=== PATIENT | female | born 1945 | race Caucasian/White ===

== ENCOUNTER 2018-07-25 06:37 | Day surgery (SDC) | payer MEDICARE ==
[2018-07-23 18:33] VITALS: BMI 28.5
[~2018-07-25 06:37] MED LIST: SODIUM CHLORIDE 0.9% 1,000 ML in EMPTY BAG 1 BAG IV ONE
[2018-07-25] MEDS ORDERED: ASPIRIN 325 MG TAB ONE (06:55)
[2018-07-25 07:10] VITALS: TEMP 98.2
[2018-07-25] MEDS ORDERED: VERAPAMIL 2.5 MG/ML 2 ML AMP ONE (07:10)
[2018-07-25] MEDS ORDERED: fentaNYL (PF) 50 MCG/ML 2 ML AMP ONE (07:10)
[2018-07-25] MEDS ORDERED: HEPARIN SODIUM 1,000 UN/ML (10ML VL) ONE (07:10)
[2018-07-25] MEDS ORDERED: LIDOCAINE 1% INJ 10MG/ML (20 ML MDV) ONE (07:10)
[2018-07-25 07:17] LABS: Basophils % (A) 0 %; Eosinophils # (A) 0.1 k/uL (0-0.7); Eosinophils % (A) 1 %; HGB 12.2 gm/dL (11.4-16.0); Lymphocytes # (A) 1.6 k/uL (1.0-4.8); Lymphocytes % (A) 15 %; MCH 29.3 pg (25.0-35.0); MCV 88.6 fL (80.0-100.0); Mean Platelet Volume 6.6; Monocytes # (A) 0.3 k/uL (0-1.0); Monocytes % (A) 3 %; Neutrophils # (A) 8.4 k/uL (1.3-7.7); Neutrophils % (A) 81 %; Platelet Count 329 k/uL (150-450); RBC 4.18 m/uL (3.80-5.40); RDW 14.1 % (11.5-15.5); WBC 10.4 k/uL (3.8-10.6)
[2018-07-25 07:24] LABS: Calcium 9.8 mg/dL (8.4-10.2)
[2018-07-25] MEDS ORDERED: fentaNYL (PF) 50 MCG/ML 2 ML AMP IV ONE (07:27)
[2018-07-25] MEDS ORDERED: LIDOCAINE 1% INJ 10MG/ML (20 ML MDV) SQ ONE (07:32)
[2018-07-25] MEDS ORDERED: MIDAZOLAM 2 MG/2 ML VIAL ONE (07:33)
[2018-07-25] MEDS: MIDAZOLAM 2 MG/2 ML VIAL IVP ONE ×2 (07:34→07:43)
[2018-07-25] MEDS: VERAPAMIL SYRINGE (5 MG/10 ML) INTRAARTER ONE ×2 (07:39→07:47)
[2018-07-25] MEDS ORDERED: NITROGLYCERIN 1000MCG/10ML SYRINGE INTRAARTER ONE (07:45)
[2018-07-25] MEDS ORDERED: HEPARIN SODIUM 1,000 UN/ML (10ML VL) IV ONE (07:47)
[2018-07-25] MEDS ORDERED: IOPAMIDOL-370 125ML BTL INJ ONE (07:59)
[2018-07-25] MEDS ORDERED: LORazepam 0.5 MG TAB PO PRN (08:11)
[2018-07-25] MEDS ORDERED: RX INFO: IV CONTRAST WAS GIVEN 1 EACH MISC MISCELLANE PRN (08:11)
[2018-07-25] MEDS ORDERED: NITROGLYCERIN SL TABS 0.4 MG TAB SUBLINGUAL PRN (08:11)
[2018-07-25] MEDS ORDERED: diphenhydrAMINE 50 MG/ML 1 ML VIAL ONE (08:14)
[2018-07-25] MEDS ORDERED: methylPREDNISolone SOD SUCCI 125 MG/2 ML VIAL ONE (08:14)
[2018-07-25] MEDS ORDERED: SODIUM CHLORIDE 0.9% 1,000 ML IV SCH (08:15)
[2018-07-25] MEDS ORDERED: LEVOTHYROXINE 50 MCG TAB PO SCH (08:15)
--- NOTE | 2018-07-25 08:55 | CC ---
CARDIAC CATHETERIZATION REPORT Mrs. Blanco is a 72-year-old female with known history of hyperlipidemia, family history of premature coronary artery disease who has been complaining of exertional chest discomfort. She had a myocardial perfusion imaging which she had poor exercise tolerance and chest discomfort with ST-segment changes with a fixed anterior wall defect. In view of her persistent symptoms and her results of the testing, recommendation was made regarding cardiac catheterization. The procedure as well as the risks and the complications were discussed with the patient who is in full understanding and agreement. 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 Using Xylocaine anesthesia in the Seldinger technique, a 6-Zimbabwean sheath was introduced in the right radial artery. Selective right and left angiography performed was performed using 5- Zimbabwean 3.5 bend right and left Ayesha catheters. Multiple views of the coronary artery including hemiaxial views obtained. Following that 5-Zimbabwean tight pigtail catheter introduced in the left ventricle and a 30-degree TELLO view of the left ventricle was obtained. Following that catheter and sheaths were removed. Hemostasis was obtained with deployment of a TR band. There was no immediate complication. Patient was returned to her room in stable condition. Of note, the patient received intra-arterial verapamil as well as 4000 units of intravenous heparin. She had severe vasospasm in the radial artery requiring changing catheter to the [employer] DxTerity 5-Zimbabwean. FINDINGS: LEFT MAIN: This is short size vessel bifurcating in left circumflex, left anterior descending artery. Left main coronary artery has no evidence of high-grade stenosis. LEFT ANTERIOR DESCENDING ARTERY: This is a large size vessel reaching to the apex with a wraparound apex segment giving rise to a proximal diagonal branch of moderate caliber. After the takeoff of the diagonal branch and before the first septal perforators, there is a 20% plaque. The rest of the vessel has no high-grade stenosis. LEFT CIRCUMFLEX: This is a nondominant vessel giving rise to 2 obtuse marginal branches. The first one is large in caliber and proximal. The left circumflex as well as branches have no evidence of obstructive coronary artery disease. RIGHT CORONARY ARTERY: This is a large dominant vessel bifurcating in PDA and posterolateral segment and branches. The right coronary artery as well as branches have no evidence of obstructive coronary artery disease. LEFT VENTRICULOGRAM: Left ventriculogram was performed in 30-degree TELLO view and revealed normal left ventricular size and systolic function. Ejection fraction is 60%. There was no significant mitral regurgitation. HEMODYNAMICS: There was no gradient across the aortic valve. The left ventricular end- diastolic pressure was 14 mmHg. CONCLUSION: 1. Mild intimal disease in the proximal left anterior descending artery. 2. Normal left ventricular size and systolic function. RECOMMENDATION: In view of finding anatomy, I recommend continue medical therapy with the aggressive coronary risk modification that has been initiated. Those findings and recommendation were discussed with the patient and her family and they are in full understanding and agreement. DURATION OF PROCEDURE: 31 minutes. MMODL / IJN: [id number] /
[2018-07-25] MEDS ORDERED: DULoxetine HCL 60 MG CAPSULE.DR PO SCH (09:00)
[2018-07-25] MEDS ORDERED: NON-FORMULARY DRUG (L.Acidoph,Paracasei, B.Lactis [Probiotic] 1 EACH) PO SCH (09:00)
[2018-07-25] MEDS ORDERED: CYCLOBENZAPRINE 10 MG TAB PO SCH (09:00)
[2018-07-25] MEDS ORDERED: CHOLECALCIFEROL 1,000 UNIT TAB PO SCH (09:00)
[2018-07-25] MEDS ORDERED: NON-FORMULARY DRUG (Fexofenadine Hcl [Allegra Allergy] 180 MG) PO SCH (09:00)
[2018-07-25] MEDS ORDERED: LOTEPREDNOL ETABONATE BOTH EYES SCH (09:00)
[2018-07-25 11:40] VITALS: BP 130/58; PULSE 75; RESP 16
[2018-07-25] MEDS ORDERED: NON-FORMULARY DRUG (Ranitidine Hcl [Zantac] 150 MG) PO SCH (17:30)
[2018-07-25] MEDS ORDERED: NORTRIPTYLINE 10 MG CAP PO SCH (21:00)
[2018-07-25] MEDS ORDERED: ATORVASTATIN 20 MG TAB PO SCH (21:00)
[2018-07-25] MEDS ORDERED: [UNRECOGNIZED DRUG - OTHER] PO SCH (21:00)
== END 2018-07-25 13:08 | disposition home or self-care (01) ==
LOC: CATHCVL 06:37
PROVIDERS: ATTEND Internal Medicine Interventional Cardiology
DX: I25.10 Atherosclerotic heart disease of native coronary artery without angina pectoris (principal); Z82.49 Family history of ischemic heart disease and other diseases of the circulatory system; E78.2 Mixed hyperlipidemia; Z79.890 Hormone replacement therapy; Z79.899 Other long term (current) drug therapy; Z88.6 Allergy status to analgesic agent; Z88.2 Allergy status to sulfonamides; Z91.048 Other nonmedicinal substance allergy status; Z91.09 Other allergy status, other than to drugs and biological substances
CPT/HCPCS: 93458; 80048; 85025; C1894; C1769; J2250; J1200; J2930; J2001; J3010; J1644; Q9967

== ENCOUNTER → 2019-04-30 | Outpatient (CLI) | payer MEDICARE ==
--- NOTE | 2019-04-30 15:30 | XR ---
EXAMINATION TYPE: XR foot complete RT DATE OF EXAM: 04/30/2019 CLINICAL HISTORY: Right foot pain TECHNIQUE: Frontal, lateral, and oblique images of the right foot are obtained. COMPARISON: None FINDINGS: There is no acute fracture/dislocation evident in the right foot. The joint spaces in the right foot appear within normal limits. Small Achilles and plantar enthesophytes are seen. The over lying soft tissue appears unremarkable. IMPRESSION: Subcutaneous edema of the plantar right hindfoot/infracalcaneal region is seen without r adiopaque foreign body. Correlate for cellulitis or nonradiopaque foreign body.
== END | disposition home or self-care (01) ==
LOC: RADXRMAIN 14:40
PROVIDERS: ATTEND Family Medicine
DX: R22.41 Localized swelling, mass and lump, right lower limb (principal)

== ENCOUNTER → 2020-07-06 | Outpatient (CLI) | payer MEDICARE ==
[2020-07-06 17:30] LABS: Basophils # (A) 0.1 k/uL (0-0.2); Basophils % (A) 1 %; Eosinophils # (A) 0.1 k/uL (0-0.7); Eosinophils % (A) 1 %; HCT 37.5 % (34.0-46.0); HGB 11.9 gm/dL (11.4-16.0); Lymphocytes # (A) 1.8 k/uL (1.0-4.8); Lymphocytes % (A) 23 %; MCH 29.2 pg (25.0-35.0); MCHC 31.7 g/dL (31.0-37.0); MCV 92.3 fL (80.0-100.0); Monocytes # (A) 0.3 k/uL (0-1.0); Monocytes % (A) 4 %; Neutrophils # (A) 5.5 k/uL (1.3-7.7); Neutrophils % (A) 71 %; Platelet Count 264 k/uL (150-450); RBC 4.07 m/uL (3.80-5.40); RDW 13.5 % (11.5-15.5); WBC 7.8 k/uL (3.8-10.6)
[2020-07-06 23:28] LABS: Albumin 4.3 g/dL (3.80-4.90); Albumin/Globulin Ratio 2.26 (1.60-3.17); Anion Gap 8.5 mmol/L (4.00-12.00); BUN/Creat Ratio 12.22 Ratio (12.00-20.00); Calcium 9.4 mg/dL (8.7-10.3); Carbon Dioxide 27.5 mmol/L (21.6-31.8); Chol/HDL Ratio 2.73; Globulin 1.9 g/dL (1.6-3.3); LDL Cholesterol,Calculated 94.4 mg/dL (0.0-131.0); Non-African American GFR(CKD) 62.1 (60.0-200.0); Potassium 4.2 mmol/L (3.5-5.5); Total Bilirubin 0.6 mg/dL (0.2-1.2); Total Protein 6.2 g/dL (6.2-8.2); VLDL Calculation 16.6 mg/dL (5.00-40.00)
[2020-07-06 23:37] LABS: T4, Free (Free Thyroxine) 1.1 ng/dL (0.80-1.80)
== END | disposition home or self-care (01) ==
LOC: LABWHC1 16:12
PROVIDERS: ATTEND Nurse Practitioner Women's Health
DX: Z00.00 Encounter for general adult medical examination without abnormal findings (principal); Z11.59 Encounter for screening for other viral diseases; E03.9 Hypothyroidism, unspecified; Z79.899 Other long term (current) drug therapy; E78.00 Pure hypercholesterolemia, unspecified; D51.9 Vitamin B12 deficiency anemia, unspecified
CPT/HCPCS: 36415; 80053; 80061; 82607; 84439; 84443; 85025; 86803

== ENCOUNTER → 2020-07-06 | Outpatient (CLI) | payer MEDICARE ==
--- NOTE | 2020-07-07 09:19 | XR ---
EXAMINATION TYPE: XR chest 2V DATE OF EXAM: 07/06/2020 COMPARISON: 02/21/2015 HISTORY: 74-year-old female cough. TECHNIQUE: Frontal and lateral views FINDINGS: The cardiomediastinal silhouette, aorta, and pulmonary vasculature are within normal limits. Mild hyp erinflation. Otherwise, lungs and pleural spaces are clear. IMPRESSION: Mild hyperinflation may relate to depth of inspiration or underlying emphysema. Clinically correlate. Otherwise, no acute cardiopulmonary process.
== END | disposition home or self-care (01) ==
LOC: RADXRMAIN 16:49
PROVIDERS: ATTEND Nurse Practitioner Women's Health
DX: R91.8 Other nonspecific abnormal finding of lung field (principal); R05 Cough
CPT/HCPCS: 71046

== ENCOUNTER → 2021-05-31 | Outpatient (CLI) | payer MEDICARE ==
--- NOTE | 2021-05-31 15:46 | XR ---
EXAMINATION TYPE: XR chest 2V DATE OF EXAM: 05/31/2021 COMPARISON: 07/06/2020 INDICATION: Chronic cough TECHNIQUE: Frontal and lateral views of the chest are obtained. FINDINGS: The heart size is normal. The pulmonary vasculature is normal. The lungs are clear. IMPRESSION: 1. No acute pulmonary process.
== END | disposition home or self-care (01) ==
LOC: RADXRMAIN 15:25
PROVIDERS: ATTEND Otolaryngology
DX: R05 Cough (principal)
CPT/HCPCS: 71046

== ENCOUNTER → 2021-07-11 | Outpatient (CLI) | payer MEDICARE ==
[2021-07-11 15:17] VITALS: BP 121/66; PULSE 74; RESP 18; TEMP 98
--- NOTE | 2021-07-11 18:48 | P.HPOB ---
History of Present Illness H&P Date: 07/11/21 Chief Complaint: Persistent urinary tract infection symptoms despite negative testing This is a 75-year-old with an LMP of approximately 1979. She is here to establish with this office. She is status post [facility] with unilateral oophorectomy in 1977 for benign reasons. The patient states it has been several years since her last pelvic exam. About 2 months ago, she started having dysuria, urinary urgency, and urinary frequency. She saw her PCP who sent her urine for testing. She states the initial testing was negative for infection, but she later got a call saying her urine culture was positive and she was treated with an antibiotic. She believes the antibiotic was Macrobid and was treated for 7 days. She did not notice improvement. She then had urinary testing done 2 more times which were both negative according to the patient. She was started on estradiol vaginal cream which she used daily for 2 weeks. She then use it once a week. She states she does not think that this has helped with her urinary symptoms. She was referred to a urologist in [place], but she has not yet seen the urologist. She also is having a stretching feeling in the groin area when she gets up. She denies any vaginal discharge. She believes the urinary symptoms started shortly after she had a pneumonia vaccination which caused significant redness in her arm where it was given. She took Benadryl and she also saw an ENT because of some nasal congestion and t hroat symptoms that that started soon after taking the Benadryl. She was started on Nasacort and Singulair at that time. She does not know if the pneumonia vaccination or at the problems involving the arm redness or throat problems are related to her urinary symptoms, but the urinary symptoms did seem to follow those problems. Over the past several years she has noticed some intermittent irritation of the vulva bilaterally and states that occasionally when irritated, the vulva can crack or bleed. She is sexually active. She does not believe that sexual activity is related to when it gets irritated. She does wear a pad and wonders if that might irritate the vulva. Review of Systems The patient has lost 22 pounds over the last year. This has been intentional in has been done with diet and exercise. She denies respiratory, cardiac, or G.I. problems. : See the HPI. Past Medical History Past Medical History: Coronary Artery Disease (CAD), Chest Pain / Angina, GERD/Reflux, Hyperlipidemia, Musculoskeletal Disorder, Thyroid Disorder Additional Past Medical History / Comment(s): HX NECK PROBLEMS, THORACIC LOWER BACK PAIN OCC. OSTEOPENIA. PALPITATIONS. HX YEAST INFECTIONS. DRY EYES. Seasonal ALLERGIES. 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 History of Any Multi-Drug Resistant Organisms: None Reported Past Surgical History: Breast Surgery, Cholecystectomy, Heart Catheterization, Hysterectomy, Orthopedic Surgery Additional Past Surgical History / Comment(s): EXC BENIGN LUMP RT BREAST. Cervical FUSION. CALCIUM EXC RT SHOULDER. RECTAL FISSURE REPAIR. Hand surgery. SAMUEL with unilateral oophorectomy in 1977. Colonoscopy 2017. Neck fusion surgery. Past Anesthesia/Blood Transfusion Reactions: Previous Problems w/ Anesthesia, Motion Sickness Additional Past Anesthesia/Blood Transfusion Reaction / Comment(s): WITH HYSTERECTOMY HAD HARD TIME AWAKENING. Past Psychological History: Anxiety, Depression Smoking Status: Never smoker Past Alcohol Use History: Occasional (0-1 week) Past Drug Use History: None Reported Additional History: She has been since 2003 and this is her second marriage. She is sexually active. She is retired. - Past Family History Mother Family Medical History: Cancer Additional Family Medical History / Comment(s): Liver and bowel cancer. Father Family Medical History: Coronary Artery Disease (CAD), Myocardial Infarction (LA) Additional Family Medical History / Comment(s): Paternal aunt had bowel cancer. Sister(s) Family Medical History: Diabetes Mellitus Medications and Allergies Home Medications Medication Instructions Recorded Confirmed Type Levothyroxine Sodium [Levoxyl] 100 mcg PO MOTUWETHFRSA 03/02/15 07/11/21 History Nortriptyline [Pamelor] 10 mg PO 03/02/15 07/11/21 History Atorvastatin [Lipitor] 20 mg PO HS 07/23/18 07/11/21 History Carboxymethylcellulose Sodium 1 - 2 drops BOTH EYES QID PRN 07/23/18 07/11/21 History [Refresh Tears] Cholecalciferol [Vitamin D3] 10,000 unit PO DAILY 07/23/18 07/11/21 History DULoxetine HCL [Cymbalta] 60 mg PO DAILY 07/23/18 07/11/21 History Fexofenadine HCl [Marilyn Allergy] 180 mg PO DAILY 07/23/18 07/11/21 History L.acidoph,Paracasei, B.lactis 1 each PO DAILY 07/23/18 07/11/21 History [Probiotic] Nitroglycerin Sl Tabs [Nitrostat] 0.4 mg SUBLINGUAL Q5M PRN 07/23/18 07/11/21 History Baclofen 10 mg PO BID 07/11/21 07/11/21 History Estradiol Cream [Estrace Cream 1 gm VAGINAL DIRECTED 07/11/21 07/11/21 History 0.01%] Isosorbide Mononitrate [Isosorbide 30 mg PO DAILY 07/11/21 07/11/21 History Mononitrate ER] Montelukast [Singulair] 10 mg PO DAILY 07/11/21 07/11/21 History Triamcinolone Acetonide [Nasacort] 1 spray EA NOSTRIL DAILY 07/11/21 07/11/21 History Allergies Allergy/AdvReac Type Severity Reaction Status Date / Time celecoxib [From Celebrex] Allergy Severe ITCH,RASH,TINGLING Verified 07/11/21 15:12 MOUTH fluconazole [From Diflucan] Allergy Severe HIVES Verified 07/11/21 15:12 ITCHING HOT FLUSH ALL OVER Sulfa (Sulfonamide Allergy Severe ITCHING,RED Verified 07/11/21 15:12 Antibiotics) RASH, TINGLING MOUTH Iodinated Contrast Media Allergy Mild MILD RASH Verified 07/11/21 15:12 [Iodinated Contrast Media - & ITCHING IV Dye] cetirizine HCl [From Zyrtec] Allergy Itching Verified 07/11/21 15:12 ciprofloxacin [From Cipro] Allergy Unknown Verified 07/11/21 15:12 ciprofloxacin HCl Allergy Unknown Verified 07/11/21 15:12 [From Cipro] clotrimazole Allergy RASH,ITCHING,RED Verified 07/11/21 15:12 LIKE A SUNBURN dexlansoprazole Allergy Unknown Verified 07/11/21 15:12 [From Dexilant] diazepam [From Valium] Allergy MOUTH Verified 07/11/21 15:12 TINGLING, "FELT DRUNK" esomeprazole magnesium Allergy FACE Verified 07/11/21 15:12 [From Nexium] NUMB,CHOKING gabapentin Allergy LEGS Verified 07/11/21 15:12 SWELL, MUSCLE WEAKNESS miconazole Allergy Rash/Hives Verified 07/11/21 15:12 milnacipran HCl Allergy RASH Verified 07/11/21 15:12 [From Savella] ITCHING ,TINGLING MOUTH nystatin Allergy RASH, Verified 07/11/21 15:12 ITCHING omeprazole Allergy RASH, Verified 07/11/21 15:12 TINGLING MOUTH pantoprazole sodium Allergy RASH,TINGLING Verified 07/11/21 15:12 [From Protonix] MOUTH rabeprazole sodium Allergy RASH,TINGLING Verified 07/11/21 15:12 [From Aciphex] MOUTH simvastatin Allergy LEG Verified 07/11/21 15:12 CRAMPS,MUSCLE WEAKNESS tuberculin, purified protein Allergy Unknown Verified 07/11/21 15:12 deriva aspirin AdvReac Nausea Verified 07/11/21 15:12 cimetidine [From Tagamet] AdvReac ITCHING,FARTUN Verified 07/11/21 15:12 H cimetidine HCl [From Tagamet] AdvReac ITCHING,FARTUN Verified 07/11/21 15:12 H Exam Vital Signs Temp Pulse Resp BP Pulse Ox 07/11/21 15:12 98.0 F 74 18 121/66 99 Intake and Output 07/11/21 07/11/21 07/11/21 06:59 14:59 22:59 Other: Weight 74.389 kg Height 5 feet 6 inches, weight 164 pounds, BMI 26.5. This is a well-developed well-nourished white female who is alert and oriented times 3 in no acute distress. ABDOMEN: Soft, nondistended, without palpable masses. There is minimal tenderness in the suprapubic region and states palpation here makes her feel like she needs to urinate. The abdomen is otherwise nontender. PELVIC EXAM: External genitalia reveals mild atrophy with benign-appearing linear areas on both labia majora that appears slightly darker with slightly thickened skin. These linear areas each measuring approximately 2.5 cm the run parallel to the vulva. There is no erythema, no ulceration or oozing from these areas. The areas are nontender. Vagina appears normal with mild atrophy. There is a grade 2 cystocele and grade 2 rectocele noted. There was overlying the cystocele and rectocele do not appear thickened or inflamed. Bimanual examination is negative for mass or tenderness. RECTAL EXAM: Rectovaginal exam is negative for mass or tenderness and is negative for occult blood. The rectal exam does confirm a rectocele with no significant enterocele. EXTREMITIES: Nontender. IMPRESSION: 1. 75-year-old menopausal female status post SAMUEL and unilateral oophorectomy for benign reasons with grade 2 cystocele and grade 2 rectocele. 2. Bilateral vulvar linear areas of chronic irritation with slight thickening of the skin. Based on the location and symmetry, this may be related to her chronic pad use. This appears benign. 3. Persistent urinary symptoms including dysuria, urinary urgency and urinary frequency over the past 2 months despite treatment with Macrobid and despite negative urine testing on several occasions with her PCP. It is possible that she is having some urinary symptoms related to the cystocele, however, I believe this is not likely to be gynecologic in nature. PLAN: 1. I have not repeated urine testing since she states this has recently been done on several occasions by her PCP. I have recommended that she keep her appointment with the urologist to whom she was referred. 2. We have had a long discussion regarding the cystocele and rectocele. I recommended that she try to empty her bladder as completely as possible when she does void. She is to do this not by bearing down, but by giving herself more time and by relaxing. She is also advised to not hold urine or stool longer than necessary. At this time, I do not believe that surgical correction is necessary. We will see if the urologist feels that surgical correction of the cystocele would help with her symptoms or if it would help to empty her bladder more completely. 3. She will continue to use estrogen vaginal cream 1 g into the vagina twice weekly. She will also apply a small amount to the vulva on those days where she has the slightly thickened skin. On the days she is not using estrogen vaginal cream, she will apply a thin layer of petroleum jelly to the vulva as a protective layer. She will try to avoid over washing with soap. She will also try to avoid scratching the vulva. 4. Affirm vaginitis panel was obtained from the vagina and to rule out Brigid and bacterial vaginosis as a cause for the vulvitis. 5. She has an appointment for a mammogram at her local hospital. In order slip was given to the patient for this. 6. She will return in one year and as needed. Total times with the patient:45 minutes.
== END ==
LOC: WWCWWP 13:55
PROVIDERS: ATTEND Obstetrics & Gynecology
DX: R39.15 Urgency of urination (principal); R35.0 Frequency of micturition; R30.0 Dysuria; N81.10 Cystocele, unspecified; N81.6 Rectocele; N76.89 Other specified inflammation of vagina and vulva; E78.5 Hyperlipidemia, unspecified; F32.9 Major depressive disorder, single episode, unspecified; F41.9 Anxiety disorder, unspecified; I25.10 Atherosclerotic heart disease of native coronary artery without angina pectoris; Z87.39 Personal history of other diseases of the musculoskeletal system and connective tissue; Z79.899 Other long term (current) drug therapy; Z88.1 Allergy status to other antibiotic agents; Z90.721 Acquired absence of ovaries, unilateral; Z90.49 Acquired absence of other specified parts of digestive tract; Z90.710 Acquired absence of both cervix and uterus; Z88.2 Allergy status to sulfonamides; Z88.6 Allergy status to analgesic agent; Z88.8 Allergy status to other drugs, medicaments and biological substances

== ENCOUNTER 2023-04-17 08:11 | Day surgery (SDC) | payer MEDICARE, OTHER ==
[~2023-04-17 08:11] MED LIST changes: +GENTAMICIN 0.3% OPHTH DROPS 5 ML BTL OPHTHALMIC PRN; +LACTATED RINGERS 1,000 ML IV SCH; +LIDOCAINE 1% (10MG/ML) FOR IV START INTRADERMA PRN; +MOXIFLOXACIN HCL 0.5% DROPS 3 ML BTL OP PRN; -SODIUM CHLORIDE 0.9% 1,000 ML in EMPTY BAG 1 BAG IV ONE; +TETRACAINE 0.5% OPHTH (PF) DROPS 4 ML BTL OP PRN; +TIMOLOL 0.5% OPHTH DROPS 5 ML BTL OP PRN
[2023-04-17] MEDS: CYCLOPENTOLATE 1% OPHTH SOLN 2 ML BTL OP PRN ×3 (08:47→08:59)
[2023-04-17] MEDS: PHENYLEPHRINE 2.5% OPHTH DRP 2ML OP PRN ×3 (08:50→09:02)
[2023-04-17 08:59] VITALS: TEMP 98
[2023-04-17] MEDS ORDERED: MIDAZOLAM 2 MG/2 ML VIAL ONE (09:54)
[2023-04-17] MEDS ORDERED: fentaNYL (PF) 50 MCG/ML 2 ML AMP ONE (09:54)
[2023-04-17] MEDS ORDERED: LIDOCAINE 1% (PF) 10MG/ML VIAL MISCELLANE ONE (10:02)
[2023-04-17] MEDS ORDERED: DUOVISC KIT (GREEN BOX) INTRAOCULA ONE (10:02)
[2023-04-17] MEDS ORDERED: BALANCED SALT IRRIG SOLN COMB2 15 ML IRRIG.SOLN IRRIGATION ONE (10:04)
[2023-04-17] MEDS ORDERED: EPINEPHrine (PF) 0.3 ML in BALANCED SALT IRRIG SOLN COMB2 500 ML IRRIGATION ONE (10:13)
--- NOTE | 2023-04-17 10:28 | P.OP ---
Date of Procedure: 04/17/23 Preoperative Diagnosis: NS & CS Postoperative Diagnosis: same Procedure(s) Performed: PIOL, OD Implants: [id number] 21.50 Anesthesia: MAC Surgeon: Ángel Anders Pathology: none sent Condition: stable Disposition: same day Indications for Procedure: blurry vision Operative Findings: no complications
[2023-04-17 10:33] VITALS: RESP 18
[2023-04-17 10:51] VITALS: BP 137/73; PULSE 60
--- NOTE | 2023-04-17 13:45 | OP ---
OPERATIVE REPORT DATE OF SERVICE : 04/17/2023 PROCEDURES PERFORMED: Phacoemulsification of cataract and intraocular lens implant of the right eye. PREOPERATIVE DIAGNOSES: Nuclear sclerosis, cortical sclerosis, and regular astigmatism. POSTOPERATIVE DIAGNOSES: Nuclear sclerosis, cortical sclerosis, and regular astigmatism. ANESTHESIA: Topical. ESTIMATED BLOOD LOSS: None. SPECIMENS TAKEN: None. NARRATIVE: After obtaining the appropriate consent, the patient was brought to the operating room. There, she was asked to sit upright and the axes of 0 and 180 degrees was identified and marked with a gentian sanjiv marker. She was then placed in the proper supine position under cardiac monitoring, prepped and draped in the usual sterile manner. She was approached from her right temporal side. Using previously acquired corneal topography information, the axis of 2 degrees was identified and marked with the [employer] axis marker. At the 11 o'clock position, an MVR blade was used to create a paracentesis port. Through this opening, 1% Xylocaine MPF 50:50 mix of balanced salt solution was injected into the anterior chamber. This was followed by stabilization of the anterior chamber with Amvisc. At the 9 o'clock position, a 2.5 mm keratome was used to create a self-sealing corneal flap incision. Through this opening, a cystotome was introduced to begin a continuous tear capsulorrhexis, which was completed using the Utrata forceps. Hydrodissection and hydrodelineation of the lens were accomplished with balanced salt solution. Phacoemulsification lens utilizing phaco chop was accomplished in 16.2 seconds at 50% power. Additional Xylocaine MPF was instilled into the anterior chamber. This was followed by removal of the remaining cortical material under irrigation and aspiration as well as careful polishing of the posterior capsule in the capsule vacuum mode. Amvisc was then used to stabilize the capsular bag. A Bausch and Lomb [id number], 21.5 diopter by 2 diopter posterior chamber intraocular lens was inserted into the capsular bag without difficulty. The remaining viscoelastic was removed from in and around the intraocular lens and the lens was then aligned with a 2- degree axis marker placed previously on the patient's cornea. The eye was inflated to normal intra-ocular pressure through the paracentesis port with balanced salt solution. The eye was then sealed using Tisseel tissue glue. She then received 2 drops of 0.5% timolol followed by 2 drops of 0.5% moxifloxacin. She was then lightly patched and shielded in the usual manner. There were no complications from the procedure. She tolerated the procedure well and was returned to outpatient recovery in good condition. RADHA / ADRIENNE: [id number] /
== END 2023-04-17 11:11 | disposition home or self-care (01) ==
LOC: OR 08:11
PROVIDERS: ATTEND Ophthalmology
DX: H25.11 Age-related nuclear cataract, right eye (principal); H25.011 Cortical age-related cataract, right eye; H04.123 Dry eye syndrome of bilateral lacrimal glands; H52.03 Hypermetropia, bilateral; Z98.890 Other specified postprocedural states; Z79.899 Other long term (current) drug therapy
CPT/HCPCS: 66984; V2787; C1780; J2250; J0171; J3010; J2001

== ENCOUNTER 2023-05-01 08:07 | Day surgery (SDC) | payer MEDICARE, OTHER ==
[~2023-05-01 08:07] MED LIST changes: -LACTATED RINGERS 1,000 ML IV SCH; -LIDOCAINE 1% (10MG/ML) FOR IV START INTRADERMA PRN; -MOXIFLOXACIN HCL 0.5% DROPS 3 ML BTL OP PRN
[2023-05-01] MEDS ORDERED: LIDOCAINE 1% (10MG/ML) FOR IV START INTRADERMA PRN (08:50)
[2023-05-01] MEDS ORDERED: LACTATED RINGERS 1,000 ML IV SCH (08:50)
[2023-05-01] MEDS: CYCLOPENTOLATE 1% OPHTH SOLN 2 ML BTL OP PRN ×3 (09:00→09:12)
[2023-05-01] MEDS: PHENYLEPHRINE 2.5% OPHTH DRP 2ML OP PRN ×3 (09:03→09:15)
[2023-05-01 09:16] VITALS: BP 154/69; PULSE 72; RESP 16; TEMP 97.3
== END 2023-05-01 10:39 | disposition home or self-care (01) ==
LOC: OR 08:07
PROVIDERS: ATTEND Ophthalmology
DX: Z53.9 Procedure and treatment not carried out, unspecified reason (principal); Z98.42 Cataract extraction status, left eye

== ENCOUNTER 2023-05-15 06:54 | Day surgery (SDC) | payer MEDICARE, OTHER ==
[2023-05-13 13:41] VITALS: BMI 24.3
[~2023-05-15 06:54] MED LIST changes: +DEXAMETHASONE SOD PHOSPHATE 4 MG/ML 1 ML VIAL IV ONE; +LIDOCAINE 1% (10MG/ML) FOR IV START INTRADERMA PRN; +MOXIFLOXACIN HCL 0.5% DROPS 3 ML BTL OP PRN; +ONDANSETRON 4 MG/2 ML VIAL IVP ONE; -TIMOLOL 0.5% OPHTH DROPS 5 ML BTL OP PRN
[2023-05-15] MEDS: CYCLOPENTOLATE 1% OPHTH SOLN 2 ML BTL OP PRN ×3 (07:18→07:34)
[2023-05-15] MEDS: PHENYLEPHRINE 2.5% OPHTH DRP 2ML OP PRN ×3 (07:22→07:37)
[2023-05-15 07:25] VITALS: RESP 16; TEMP 97
[2023-05-15] MEDS: LACTATED RINGERS 1,000 ML IV SCH ×2 (07:25→08:12)
[2023-05-15] MEDS ORDERED: MIDAZOLAM 2 MG/2 ML VIAL ONE (08:15)
[2023-05-15] MEDS ORDERED: EPINEPHrine (PF) 0.3 ML in BALANCED SALT IRRIG SOLN COMB2 500 ML IRRIGATION ONE (08:19)
[2023-05-15] MEDS ORDERED: HYALURONATE SODIUM INTRAOCULAR 1 EACH SYRINGE (12MG/ML) INTRAOCULA ONE ×2 (08:20→08:27)
[2023-05-15] MEDS ORDERED: BALANCED SALT IRRIG SOLN COMB2 15 ML IRRIG.SOLN INTRAOCULA ONE ×2 (08:21→08:27)
[2023-05-15] MEDS ORDERED: LIDOCAINE 1% (PF) 10MG/ML VIAL MISCELLANE ONE ×2 (08:21→08:27)
[2023-05-15] MEDS: TIMOLOL 0.5% OPHTH DROPS 5 ML BTL OP PRN ×2 (08:21→08:27)
[2023-05-15] MEDS ORDERED: MOXIFLOXACIN HCL 0.5% DROPS 3 ML BTL LEFT EYE ONE ×2 (08:23→08:27)
--- NOTE | 2023-05-15 08:49 | P.OP ---
Date of Procedure: 05/15/23 Preoperative Diagnosis: NS & CS Postoperative Diagnosis: same Procedure(s) Performed: PIOL, OS Implants: [id number] 21.50 Anesthesia: MAC Surgeon: Ángel Anders Pathology: none sent Condition: stable Disposition: same day Indications for Procedure: blurry vsion Operative Findings: no complications
[2023-05-15 09:10] VITALS: BP 144/80; PULSE 68
--- NOTE | 2023-05-16 02:30 | OP ---
OPERATIVE REPORT DATE OF SERVICE : 05/15/2023 PROCEDURES PERFORMED: Phacoemulsification of cataract and intraocular lens implant of the left eye. PREOPERATIVE DIAGNOSES: Nuclear sclerosis, cortical sclerosis and regular astigmatism. POSTOPERATIVE DIAGNOSES: Nuclear sclerosis, cortical sclerosis and regular astigmatism. ANESTHESIA: Topical. ESTIMATED BLOOD LOSS: None. SPECIMEN TAKEN: None. NARRATIVE: After obtaining the appropriate consent, the patient was brought to the operating room, there she was placed under cardiac monitoring, prepped and draped in the usual sterile manner. She was approached from the left temporal side. Using previously acquired corneal topography information, the axis of 9 degrees was identified and marked with the [facility] axis marker. At the 5 o'clock position, an MVR blade was used to create a paracentesis port. Through this opening, 1% Xylocaine MPF 50:50 mix with balanced salt solution was injected into the anterior chamber. This was followed by stabilization of the anterior chamber with Amvisc. At the 3 o'clock position, 2.5 mm keratome was used to create a self-sealing corneal flap incision. Through this opening, a cystotome was introduced to begin a continuous tear capsulorrhexis which was then completed using the Utrata forceps. Hydrodissection and hydrodelineation of the lens were accomplished with balanced salt solution. Phacoemulsification lens utilizing phaco chop was accomplished at 12.66 seconds at 15% power. Additional Xylocaine MPF was instilled into the anterior chamber. This was followed by removal of the remaining cortical material under irrigation and aspiration as well as careful polishing of the posterior capsule in capsule vacuum mode. Additional Amvisc was then used to stabilize the capsular bag and a Bausch and Lomb [id number] 21.5 diopter posterior chamber intraocular lens was inserted into the capsular bag without difficulty. Remaining viscoelastic was removed from in and around the intraocular lens and the lens was then aligned with a 9- degree axis marker placed on the patient's cornea. The eye was brought to normal intraocular pressure through the paracentesis port and the incision was confirmed watertight. Additionally, Tisseel was used to maintain the watertight integrity in the early postoperative phase. She then received 2 drops of 0.5% timolol followed by 2 drops of 0.5% moxifloxacin, it was then lightly patched and shielded in the usual manner. There were no complications from the procedure. She tolerated the procedure well and was returned to outpatient recovery in good condition. MMSAIDA / KARLAN: [id number] /
== END 2023-05-15 09:41 | disposition home or self-care (01) ==
LOC: OR 06:54
PROVIDERS: ATTEND Ophthalmology
DX: H25.12 Age-related nuclear cataract, left eye (principal); H25.012 Cortical age-related cataract, left eye; H52.03 Hypermetropia, bilateral; I25.10 Atherosclerotic heart disease of native coronary artery without angina pectoris; E78.5 Hyperlipidemia, unspecified; K21.9 Gastro-esophageal reflux disease without esophagitis; Z96.1 Presence of intraocular lens; Z98.49 Cataract extraction status, unspecified eye; Z79.899 Other long term (current) drug therapy
CPT/HCPCS: 66984; V2787; C1780; J2250; J0171; J2001